=== PATIENT | female | born 1970 | race Hispanic/Latino ===

== ENCOUNTER → 2019-01-24 | Outpatient (CLI) | payer BC | END | disposition home or self-care (01) | LOC: RAH 09:03 | PROVIDERS: ATTEND Urology | DX: N20.0 Calculus of kidney (principal); Z96.0 Presence of urogenital implants | CPT/HCPCS: 74018; 76100 ==

== ENCOUNTER → 2019-02-24 | Outpatient (CLI) | payer BC ==
[~2019-02-24] MED LIST: LEVO75TA10 PO
== END | disposition home or self-care (01) ==
LOC: RAH 09:03
PROVIDERS: ATTEND Urology
DX: N20.0 Calculus of kidney (principal)
CPT/HCPCS: 74018; 76100

== ENCOUNTER 2019-03-01 07:02 | Day surgery (SDC) | payer BC ==
[2019-02-28 17:48] VITALS: BP 136/80
[2019-02-28 17:50] LABS: HEMATOCRIT 37.9 % (36-48); MEAN CORPUSCULAR HEMOGLOBIN 28.4 pg (27.0-33.0); MEAN CORPUSCULAR VOLUME 86.1 fL (79-99); PLATELET COUNT (AUTO) 308 K/uL (130-400); WHITE BLOOD COUNT (AUTO) 7.7 K/uL (4.8-10.8)
[2019-02-28 17:58] LABS: CREATININE 0.7 mg/dL (0.5-1.5); POTASSIUM 3.9 mmol/L (3.5-5.1)
[2019-02-28 18:02] LABS: INR 0.95 (0.85-1.15); PARTIAL THROMBOPLASTIN TIME 27.1 SEC (26.3-35.5)
[2019-02-28 18:18] LABS: APPEARANCE,URINE CLOUDY (CLEAR); BILIRUBIN,URINE NEGATIVE (NEGATIVE); COLOR,URINE YELLOW (YELLOW); GLUCOSE, URINE (UA) NEGATIVE (NEGATIVE); KETONES,URINE NEGATIVE (NEGATIVE); LEUKOCYTE ESTERASE ,URINE TRACE (NEGATIVE); NITRATE,URINE NEGATIVE (NEGATIVE); OCCULT BLOOD,URINE MODERATE (NEGATIVE); PH,URINE 8.5 (5.0-8.0); PROTEIN,URINE 100 mg/dL (NEGATIVE); UROBILINOGEN,URINE 0.2 mg/dL (0.2-1.0)
[2019-02-28 18:35] LABS: AMORPHOUS SEDIMENT,UR Moderate /LPF (None Seen); BACTERIA,URINE Few /HPF (None Seen); MUCUS,URINE None Seen LPF (None Seen); SQUAMOUS EPITHELIAL CELL,UR 0-2 /HPF (0-2)
[~2019-03-01] VITALS: Ht 154.9 cm; Wt 62.0 kg
[2019-03-01] VITALS (18 sets, daily range): BP systolic 123–144; BP diastolic 74–94
[~2019-03-01 07:02] MED LIST changes: +CEFAZOLIN SODIUM 1 GM VIAL IVP SCH; +LACTATED RINGERS 1000ML 1,000 ML IV SCH
[2019-03-01] MEDS ORDERED: IOHEXOL-350 50ML VIAL IV ONE (07:53)
[2019-03-01] MEDS ORDERED: DEXAMETHASONE SOD PHOSPHATE 10MG/ML 1ML VIAL ONE (08:10)
[2019-03-01] MEDS ORDERED: MIDAZOLAM HCL 1 MG/ML 2ML VIAL ONE (08:10)
[2019-03-01] MEDS ORDERED: ONDANSETRON HCL 4 MG/2 ML VIAL ONE (08:10)
[2019-03-01] MEDS ORDERED: FENTANYL CITRATE PF 50 MCG/1 ML 2ML VIAL ONE (08:10)
[2019-03-01] MEDS ORDERED: LIDOCAINE PF 2% 5ML ABBOJECT ONE (08:10)
[2019-03-01] MEDS ORDERED: PROPOFOL 10 MG/ML 20ML VIAL IV ONE (08:10)
[2019-03-01] MEDS ORDERED: ROCURONIUM 10MG/1ML SYR 10 MG/ML ML ONE (08:13)
[2019-03-01] MEDS ORDERED: NEOSTIGMINE 5MG/5ML SYR IV ONE (10:04)
[2019-03-01] MEDS ORDERED: GLYCOPYRROLATE 1 MG/5 ML SYRINGE ONE (10:04)
--- NOTE | 2019-03-01 11:25 | NUR ---
ASSESSMENT RECEIVED PT FROM PACU STAFF RAMAKRISHNA MCBRIDE. PT [id number]. DENIES ANY PAIN AT THIS TIME. AT BEDSIDE.
--- NOTE | 2019-03-01 12:20 | NUR ---
DISCHARGE ORAL AND WRITTEN DISCHARGE INSTRUCTIONS GIVEN TO PT AND PTS ALONG WITH PRESCRIPTION. NO OTHER QUESTIONS AT THIS TIME.
== END 2019-03-01 12:15 | disposition home or self-care (01) ==
LOC: DAH 07:02
PROVIDERS: ATTEND Urology
DX: Z46.6 Encounter for fitting and adjustment of urinary device (principal); N28.89 Other specified disorders of kidney and ureter; N85.2 Hypertrophy of uterus; E03.9 Hypothyroidism, unspecified; Z79.899 Other long term (current) drug therapy; Z90.49 Acquired absence of other specified parts of digestive tract
CPT/HCPCS: 36415; 52310; 71046; 74420; 80048; 81001; 85027; 85610; 85730; 87088; 93005; A4213; A4215; A4221; A4222; A4223; A4600; A4663; A4930 ×2; A5113; A6260; C1751; C1758; C1769 ×3; J0690; J1100; J2001; J2250; J2405; J2704; J2710; J3010; J3490; J7120; Q9967